=== PATIENT | female | born 1975 ===

== ENCOUNTER 2018-05-12 18:18 | Emergency (ER) | payer SELFPAY ==
[2018-05-12 19:07] VITALS: BP 132/76; PULSE 76; RESP 18; TEMP 98.1; O2SAT 99
--- NOTE | 2018-05-12 19:37 | ED PDOC ---
HPI: Back Time Seen by Provider: 05/12/18 19:21 Chief Complaint (Nursing): Back Pain Chief Complaint (Provider): Back Pain History Per: Patient History/Exam Limitations: no limitations Onset/Duration Of Symptoms: Days (x1.5 weeks) Previous Symptoms: Back Pain Additional Complaint(s): 42 y/o female presents with 1.5 week history of right lower back pain. Patient reports that symptoms started after she was shoveling snow. Ever since she has mild and constant back pain that has been worsening over the last x2 days and is worse with positional movement. Of note, patient reports a long history of unexplained abdominal pain and is being worked up for fibromyalgia but on arrival to ED she is not complaining of abdominal pain. No urinary symptoms, fever, numbness, or weakness. Past Medical History Reviewed: Historical Data, Nursing Documentation, Vital Signs Vital Signs: Last Vital Signs Temp 98.1 F 05/12/18 19:04 Pulse 76 05/12/18 19:04 Resp 18 05/12/18 19:04 BP 132/76 05/12/18 19:04 Pulse Ox 99 05/12/18 19:04 - Medical History PMH: No Chronic Diseases - Surgical History Surgical History: No Surg Hx - Family History Family History: States: Unknown Family Hx - Home Medications Home Medications: Ambulatory Orders Medication Instructions Recorded Cyclobenzaprine [Cyclobenzaprine 10 mg PO BID #10 tab 05/12/18 HCl] Ibuprofen [Motrin Tab] 600 mg PO TID #15 tab 05/12/18 - Allergies Allergies/Adverse Reactions: Allergies Allergy/AdvReac Type Severity Reaction Status Date / Time No Known Allergies Allergy Verified 05/12/18 19:04 Review of Systems ROS Statement: Except As Marked, All Systems Reviewed And Found Negative Gastrointestinal: Negative for: Abdominal Pain Genitourinary Female: Negative for: Dysuria, Frequency, Incontinence Musculoskeletal: Positive for: Back Pain Neurological: Negative for: Weakness, Numbness Physical Exam - Reviewed Nursing Documentation Reviewed: Yes Vital Signs Reviewed: Yes - Physical Exam Appears: Positive for: Non-toxic, No Acute Distress Head Exam: Positive for: ATRAUMATIC, NORMOCEPHALIC Skin: Positive for: Normal Color, Warm, DRY Eye Exam: Positive for: EOMI, Normal appearance, PERRL Gastrointestinal/Abdominal: Positive for: Normal Exam, Soft. Negative for: Tenderness Back: Positive for: Vertebral Tenderness (mild right paralumbar tenderness; right upper buttock tenderness) Neurologic/Psych: Positive for: Alert, Oriented, Other (5/5 strength in bilateral lower extremities; sensation intact). Negative for: Motor/Sensory Deficits - ECG O2 Sat by Pulse Oximetry: 99 (RA) Pulse Ox Interpretation: Normal Medical Decision Making Medical Decision Making: Time: 19:21 Initial Impression: Initial Plan: * Urine * Motrin * Flexeril Pt. well appearing, ambulating with steady gait, no distress, neuro intact. patient will be discharged and was advised to see harlan Win. Scribe Attestation: Documented by Alexey Flores, acting as a scribe for Genia Vilchis PA-C Provider Scribe Attestation: All medical record entries made by the Scribe were at my direction and personally dictated by me. I have reviewed the chart and agree that the record accurately reflects my personal performance of the history, physical exam, medical decision making, and the department course for this patient. I have also personally directed, reviewed, and agree with the discharge instructions and disposition. Disposition - Clinical Impression Clinical Impression: Acute back pain - Patient ED Disposition Is Patient to be Admitted: No Counseled Patient/Family Regarding: Diagnosis, Need For Followup, Rx Given - Disposition Referrals: Nhi Cristina MD [Staff Provider] - Disposition: Routine/Home Disposition Time: 20:59 Condition: STABLE Prescriptions: Cyclobenzaprine [Cyclobenzaprine HCl] 10 mg PO BID #10 tab Ibuprofen [Motrin Tab] 600 mg PO TID #15 tab Instructions: Upper Back Pain (DC) Forms: [employer] (Italian) Print Language: YI
== END 2018-05-12 21:35 | disposition home or self-care (01) ==
LOC: H.ER 18:18
DX: M54.9 Dorsalgia, unspecified (principal)